=== PATIENT | female | born 1945 | race Caucasian/White ===

== ENCOUNTER → 2023-04-15 | Outpatient (CLI) | payer OTHER, MEDICAID ==
--- NOTE | 2023-04-15 14:23 | Diagnostic Imaging Report ---
Examination: Left knee four views. HISTORY: Knee pain. COMPARISON: None available. FINDINGS: There is a left total knee arthroplasty. No fracture is seen. No dislocation. No effusion. IMPRESSION: 1. Left knee arthroplasty without acute abnormality. Dictated by: Dictated on workstation # [id number]
== END ==
LOC: ORTHO 13:59
PROVIDERS: ATTEND Orthopaedic Surgery
DX: M25.562 Pain in left knee (principal); Z96.652 Presence of left artificial knee joint
CPT/HCPCS: 73564; G0463; 99203

== ENCOUNTER → 2023-04-21 | Outpatient (CLI) | payer MEDICARE, MEDICAID ==
--- NOTE | 2023-04-21 14:55 | Diagnostic Imaging Report ---
Exam: CT left knee without contrast. Date: April 21, 2023. Indication: 77-year-old female, knee pain in the region of the superior aspect of the patella. A locking of the knee. Comparison: Left knee radiographs April 15, 2023. Technique: Axial CT images of the left knee were obtained without contrast. Coronal and sagittal reformats were obtained and provided. Findings: There is limited evaluation on the coronal and sagittal reformats relating to the lack of [id number] ratio. There is a total left knee prosthesis. The hardware is intact. There is no identified periprosthetic lucency. There is patellar tilt. The patella also is fairly low in position. There is limited tendon evaluation on CT, especially given the hardware related artifact as well. There is no identified acute fracture. There is no cortical or aggressive bone destruction. Impression: 1. Patellar tilt and inferior positioning of the patella. 2. Limited tendon evaluation on CT. 3. No identified fracture, evidence of osteomyelitis, or other acute osseous abnormality. 4. No evidence to suggest loosening of the knee prosthesis. Dictated by: Dictated on workstation # [id number]
== END ==
LOC: RAD 14:00
PROVIDERS: ATTEND Orthopaedic Surgery
DX: M25.562 Pain in left knee (principal)
CPT/HCPCS: 73700

== ENCOUNTER → 2023-05-13 | Outpatient (CLI) | payer MEDICARE, MEDICAID | LOC: ORTHO 12:45 | PROVIDERS: ATTEND Orthopaedic Surgery | DX: M25.562 Pain in left knee (principal); Z96.652 Presence of left artificial knee joint | CPT/HCPCS: 99213 ==